=== PATIENT | female | born 1960 | race Caucasian/White ===

== ENCOUNTER 2019-04-03 08:37 | Emergency (ER) | payer OTHER ==
[~2019-04-03] VITALS: Ht 157.5 cm; Wt 68.0 kg
[~2019-04-03 08:37] MED LIST: PEPCID20 MG; ULTRACET PO
== END 2019-04-03 12:56 | disposition home or self-care (01) ==
LOC: ER 08:37
DX: K57.92 Diverticulitis of intestine, part unspecified, without perforation or abscess without bleeding (principal); R10.32 Left lower quadrant pain

== ENCOUNTER 2019-06-09 09:30 | Emergency (ER) | payer OTHER ==
[~2019-06-09] VITALS: Ht 157.5 cm; Wt 65.8 kg
== END 2019-06-09 13:02 | disposition home or self-care (01) ==
LOC: ER 09:30
DX: M54.5 Low back pain (principal)

== ENCOUNTER 2019-09-24 10:41 | Emergency (ER) | payer OTHER ==
[~2019-09-24] VITALS: Ht 157.5 cm; Wt 61.2 kg
== END 2019-09-24 14:45 | disposition home or self-care (01) ==
LOC: ER 10:41
DX: M54.41 Lumbago with sciatica, right side (principal)

== ENCOUNTER 2019-10-22 05:36 | Emergency (ER) | payer OTHER ==
[~2019-10-22] VITALS: Ht 157.5 cm; Wt 60.8 kg
== END 2019-10-22 15:30 | disposition home or self-care (01) ==
LOC: ER 05:36
DX: K57.92 Diverticulitis of intestine, part unspecified, without perforation or abscess without bleeding (principal)

== ENCOUNTER 2021-07-21 18:55 | Emergency (ER) | payer OTHER ==
[~2021-07-21] VITALS: Ht 162.6 cm; Wt 70.3 kg
[2021-07-21] MEDS ORDERED: AZITHROMYCIN500 MG PO (23:57)
[2021-07-21] MEDS ORDERED: PEPCID AC20 MG PO (23:57)
[2021-07-21] MEDS ORDERED: INTESTINEX680 M2 PO (23:57)
[2021-07-21] MEDS ORDERED: PROTONIX20 MG PO (23:57)
== END 2021-07-22 00:17 | disposition home or self-care (01) ==
LOC: ER 18:55
DX: R11.10 Vomiting, unspecified (principal); Z03.818 Encounter for observation for suspected exposure to other biological agents ruled out; B96.0 Mycoplasma pneumoniae [M. pneumoniae] as the cause of diseases classified elsewhere; Z87.19 Personal history of other diseases of the digestive system

== ENCOUNTER 2022-01-28 14:52 | Emergency (ER) | payer OTHER ==
[~2022-01-28] VITALS: Ht 157.5 cm; Wt 64.9 kg
[~2022-01-28 14:52] MED LIST changes: +AZITHROMYCIN500 MG PO; +INTESTINEX680 M2 PO; +PEPCID AC20 MG PO; +PROTONIX20 MG PO
[2022-01-28] MEDS ORDERED: NORFLEX100MG PO (19:00)
[2022-01-28] MEDS ORDERED: KETO10TA2 PO (19:00)
== END 2022-01-28 19:12 | disposition home or self-care (01) ==
LOC: ER 14:52
DX: M62.838 Other muscle spasm (principal); M54.30 Sciatica, unspecified side; Z88.8 Allergy status to other drugs, medicaments and biological substances